=== PATIENT | female | born 1970 | race Caucasian/White ===

== ENCOUNTER 2016-10-08 21:27 | Emergency (ER) | payer BC, OTHER ==
--- NOTE | 2016-10-08 22:21 | ER NURSING DOCUMENTATION ---
Nurse's Notes [facility] Name:Yomaira Merrill Age:46 yrs Sex:Female :1970 Arrival Date:10/08/2016 Time:21:27 Bed6 Private MD: Diagnosis:Distal Fibula Fracture Presentation: 10/08 21:29 Acuity: SANNA 3 bw2 21:33 Presenting complaint: Patient states: pt states she rolled her ankle while walking down bw2 some steps. pt denies hitting head. Transition of care: patient was not received from another setting of care. 21:33 Method Of Arrival: Wheelchair bw2 Triage Assessment: 21:34 General: Appears uncomfortable, Behavior is anxious, appropriate for age, Smells of bw2 alcohol. Pain: Complains of pain in right ankel Pain currently is 10 out of 10 on a pain scale. Pain began 30 min ago. Musculoskeletal: Circulation, motion, and sensation intact Capillary refill Swelling present in right ankel. Historical: - Allergies: No known drug Allergies; - Home Meds: 1. None - Tetanus: < 10 years. - Ebola Screening: : Patient negative for fever greater than or equal to 101.5 degrees Fahrenheit, and additional compatible Ebola Virus Disease symptoms. Patient denies exposure to infectious person. Patient denies travel to an Ebola-affected area in the 21 days before illness onset. No symptoms or risks identified at this time. . - Immunization history: Flu Vaccine unknown. - Social history: Smoking status: Patient uses tobacco products, current some day smoker. Patient uses alcohol weekly. Screenin:37 Infectious Disease Risk None. Abuse screen: Denies threats or abuse. Denies injuries bw2 from another. Nutritional screening: No deficits noted. Assessment: 21:36 See Triage Assessment done by same RN. bw2 Vital Signs: 21:35 BP 125 / 93; Pulse 96; Resp 18; Temp 97.7(O); Pulse Ox 94% ; Weight 83.91 kg; Height 5 bw2 ft. 6 in. (167.64 cm); Pain 10/10; 22:18 BP 140 / 68; Pulse 88; Resp 18; Pulse Ox 95% on R/A; bw2 21:35 Body Mass Index 29.86 (83.91 kg, 167.64 cm) bw2 ED Course: 21:28 Patient arrived in ED. cj 21:29 Kirsty Baird is Primary Nurse. bw2 21:29 Triage completed. bw2 21:37 Raphael Mauro MD is Attending Physician. caren 21:37 Valuables Remains with patient Patient has correct armband on for positive bw2 identification. Placed in gown. 21:40 Port Xray Completed. dnn 22:05 Raad Reeves MD, Rakesh Lutz DO is Referral Physician. Administered Medications: 21:47 Drug: HYDROcodone-acetaminophen 5 mg-325 mg 1 tabs; Route: PO; bw2 22:19 Follow up: Response: Pain is decreased bw2 Outcome: 22:05 Discharge ordered by MD. caren 22:18 Discharged to home via wheelchair, with crutches. bw2 22:18 Condition: good 22:18 Discharge Assessment: Patient awake, alert and oriented x 3. No cognitive and/or functional deficits noted. Patient verbalized understanding of disposition instructions. 22:18 Discharge instructions given to patient, significant other, Instructed on discharge instructions, follow up and referral plans. no drinking with medication, no driving heavy equipment, [facility] Demonstrated understanding of instructions, crutch walking, Prescriptions given X 1. 22:20 Patient left the ED. bw2 Signatures: Raphael Mauro MD MD jm Norman, David dnn Jones, Carissa cj Wisely, Beth bw2
--- NOTE | 2016-10-08 22:21 | ER PHYSICIAN DOCUMENTATION ---
Physician Documentation [facility] Name:Yomaira Merrill Age:46 yrs Sex:Female :1970 Arrival Date:10/08/2016 Time:21:27 Bed6 Private MD: Raphael Shen Disposition: 10/08/16 22:05 Discharged to Home/Self Care. Impression: Distal Fibula Fracture. - Condition is Good. - Discharge Instructions: ANKLE FRACTURE (Distal Fibula), closed. - Prescriptions for Hydrocodone- Acetaminophen 5-325 mg Oral Tablet - take 1 tablet by ORAL route every 6 hours As needed; 20 tablet. - Medical Reconciliation form form. - Follow up: Raad Reeves MD, Rakesh Lutz DO; When: 1 week; Reason: Continuance of care. - Problem is new. - Symptoms have improved. HPI: 10/08 22:59 This 46 yrs old Female presents to ER via Wheelchair with complaints of Ankle jm Injury. 22:59 The patient presents with an injury, pain, swelling, tenderness. The complaints affect jm the right ankle. Onset: The symptom(s)/episode began/occurred today. Context: resulted from a mis-step by the patient, The mechanism of injury involved inversion of the affected ankle. Associated signs and symptoms: Pertinent positives: swelling. Historical: - Allergies: No known drug Allergies; - Home Meds: 1. None - Tetanus: < 10 years. - Ebola Screening: : Patient negative for fever greater than or equal to 101.5 degrees Fahrenheit, and additional compatible Ebola Virus Disease symptoms. Patient denies exposure to infectious person. Patient denies travel to an Ebola-affected area in the 21 days before illness onset. No symptoms or risks identified at this time. . - Immunization history: Flu Vaccine unknown. - Social history: Smoking status: Patient uses tobacco products, current some day smoker. Patient uses alcohol weekly. ROS: 22:59 Constitutional: Negative for fever. jm 22:59 MS/extremity: Positive for injury or acute deformity, swelling, tenderness. 22:59 Skin: Positive for swelling. 22:59 Neuro: Negative for headache. Exam: 22:59 Constitutional: The patient appears alert, awake. jm 22:59 Musculoskeletal/extremity: ROM: limited active range of motion due to pain, limited passive range of motion due to pain, in the left foot, Pulses: are normal with no appreciated deficits, Sensation intact. 22:59 Skin: cellulitis, is not appreciated, no rash present. 22:59 Neuro: Mentation: is normal, Memory: is normal. 22:59 Psych: Behavior/mood is pleasant, cooperative, Affect is calm. Vital Signs: 21:35 BP 125 / 93; Pulse 96; Resp 18; Temp 97.7(O); Pulse Ox 94% ; Weight 83.91 kg; Height 5 bw2 ft. 6 in. (167.64 cm); Pain 10/10; 22:18 BP 140 / 68; Pulse 88; Resp 18; Pulse Ox 95% on R/A; bw2 21:35 Body Mass Index 29.86 (83.91 kg, 167.64 cm) bw2 MDM: 21:37 Patient medically screened. 23:08 Differential diagnosis: fracture, sprain. Data reviewed: vital signs, nurses notes, jm radiologic studies, and as a result, I will discharge patient. Test interpretation: by ED physician or midlevel provider: plain radiologic studies. Counseling: I had a detailed discussion with the patient and/or guardian regarding: the historical points, exam findings, and any diagnostic results supporting the discharge/admit diagnosis, radiology results, the need for outpatient follow up, a orthopedic surgeon. Medication response: The patient's symptoms have improved. 10/09 20:35 Order name: ANKLE; [address] [id number] EDDE 10/08 21:38 Order name: Ice Packs; Complete Time: 21:39 bw2 Dispensed Medications: 21:47 Drug: HYDROcodone-acetaminophen 5 mg-325 mg 1 tabs; Route: PO; bw2 22:19 Follow up: Response: Pain is decreased bw2 Signatures: Raphael Mauro MD MD jm Wisely, Beth bw2
--- NOTE | 2016-10-09 19:26 | RADIOLOGY REPORT ---
Three views of the right ankle demonstrate a nondisplaced transverse fracture of the distal fibula. The tibia, talus and mortise are intact. IMPRESSION: Nondisplaced transverse fracture of the right distal fibula. MTDD
== END 2016-10-08 22:21 | disposition home or self-care (01) ==
LOC: ER 21:27
DX: S82.424A Nondisplaced transverse fracture of shaft of right fibula, initial encounter for closed fracture (principal); W18.49XA Other slipping, tripping and stumbling without falling, initial encounter; Y93.01 Activity, walking, marching and hiking; Z72.0 Tobacco use
CPT/HCPCS: 99284